=== PATIENT | female | born 1995 | race Caucasian/White ===

== ENCOUNTER 2018-06-04 17:39 | Emergency (ER) | payer MEDICAID | END 2018-06-04 20:14 | disposition home or self-care (01) | LOC: FTE 17:39 | DX: H92.02 Otalgia, left ear (principal) | CPT/HCPCS: 99283; Z7502 ==

== ENCOUNTER 2019-03-16 22:54 | Inpatient (IN) | payer MEDICAID ==
[2019-03-16 23:26] LABS: ADD MAN DIFF? NO
[2019-03-16] MEDS: SODIUM CHLORIDE 0.9% 1L BAG IV* (23:30)
[2019-03-16 23:31] LABS: BASOPHIL # 0.1 10^3/ul (0.0-0.1); BASOPHILS % 0.5 % (0.0-2.0); EOSINOPHILS # 0.2 10^3/ul (0.0-0.5); EOSINOPHILS % 1.4 % (0.0-7.0); HEMATOCRIT 39.4 % (37.0-47.0); HEMOGLOBIN 12.7 g/dl (12.0-16.0); LYMPHOCYTES # 1.5 10^3/ul (0.8-2.9); LYMPHOCYTES % 13.6 % (15.0-51.0); MEAN CORPUSCULAR HEMOGLOBIN 25.9 pg (29.0-33.0); MEAN CORPUSCULAR HGB CONC 32.2 g/dl (32.0-37.0); MEAN CORPUSCULAR VOLUME 80.2 fl (82.0-101.0); MEAN PLATELET VOLUME 9.6 fl (7.4-10.4); MONOCYTE # 0.6 10^3/ul (0.3-0.9); MONOCYTES % 5.3 % (0.0-11.0); NEUTROPHIL # 8.4 10^3/ul (1.6-7.5); NEUTROPHILS % 78.7 % (39.0-77.0); PLATELET COUNT 340 10^3/UL (140-415); RED BLOOD COUNT 4.91 10^6/ul (4.20-5.40); RED CELL DISTRIBUTION WIDTH 13.5 % (11.5-14.5)
[2019-03-16 23:31] LABS: WHITE BLOOD COUNT 10.7 10^3/ul (4.8-10.8)
[2019-03-16 23:35] LABS: ADD UMIC YES; UR ASCORBIC ACID NEGATIVE (NEGATIVE); UR BACTERIA FEW /HPF (NONE SEEN); UR BILIRUBIN (Dip) NEGATIVE (NEGATIVE); UR BLOOD (Dip) 1+ mg/dL (NEGATIVE); UR CLARITY CLEAR (CLEAR); UR COLOR YELLOW (YELLOW); UR GLUCOSE (Dip) NEGATIVE (NEGATIVE); UR KETONES (Dip) NEGATIVE (NEGATIVE); UR LEUKOCYTE ESTERASE (Dip) TRACE Leu/ul (NEGATIVE); UR NITRITE (Dip) NEGATIVE (NEGATIVE); UR RBC 0 /HPF (0-5); UR SPECIFIC GRAVITY (Dip) 1.004 (1.003-1.030); UR SQUAMOUS EPITHELIAL CELL FEW /HPF (FEW); UR TOTAL PROTEIN (Dip) 1+ mg/dl (NEGATIVE); UR UROBILINOGEN (Dip) 1+ mg/dL (NEGATIVE); UR WBC 2 /HPF (0-5)
[2019-03-16] MEDS: ACETAMINOPHEN 325 MG TAB PO (23:35)
[2019-03-16 23:50] LABS: ALANINE AMINOTRANSFERASE 28 IU/L (13-69); ALBUMIN 4.2 g/dl (3.3-4.9); ALBUMIN/GLOBULIN RATIO 1.13; ALKALINE PHOSPHATASE 92 IU/L (42-121); ANION GAP 13 (5-13); ASPARTATE AMINO TRANSFERASE 41 IU/L (15-46); BILIRUBIN,INDIRECT 0.3 mg/dl (0-1.1); BILIRUBIN,TOTAL 0.3 mg/dl (0.2-1.3); BLOOD UREA NITROGEN 5 mg/dl (7-20); CALCIUM 8.7 mg/dl (8.4-10.2); CARBON DIOXIDE 24 mmol/L (21-31); CHLORIDE 101 mmol/L (97-110); CREATININE 0.56 mg/dl (0.44-1.00); Estimated GFR > 60 mL/min (>60); GLUCOSE 126 mg/dl (70-220); POTASSIUM 3.5 mmol/L (3.5-5.1); SODIUM 138 mmol/L (135-144); TOTAL PROTEIN 7.9 g/dl (6.1-8.1)
[2019-03-16 23:51] LABS: INR 1.01; PROTIME 13.4 Sec (11.9-14.9)
[2019-03-17 00:01] LABS: TROPONIN-I < 0.012 ng/ml (0.000-0.120)
[2019-03-17] MEDS: ALBUTEROL 0.083% (NEB) 2.5 MG/3 ML AMP HHN (00:51)
[2019-03-17] MEDS: IPRATROPIUM (NEB) 0.5 MG/2.5 ML AMP HHN (00:51)
[2019-03-17] MEDS: CEFTRIAXONE 1 GM/50 ML (PMX) 50 ML IVPB (00:53)
[2019-03-17] MEDS: AZITHROMYCIN 500MG/NS (PMX) 250 ML IVPB (00:54)
[2019-03-17] MEDS ORDERED: ONDANSETRON 4 MG INJ IV (01:30)
[2019-03-17] MEDS ORDERED: BISACODYL (EC) 5 MG TAB PO (01:30)
[2019-03-17] MEDS ORDERED: NACL 0.9% 3 ML SYG IV (01:30)
[2019-03-17 01:52] LABS: D-DIMER 549.86 ng/ml (<460)
[2019-03-17 01:55] LABS: LACTIC ACID 0.9 mmol/L (0.5-2.0)
[2019-03-17] MEDS: IBUPROFEN 600 MG TAB PO (02:21)
[2019-03-17] MEDS: SOD CHLORIDE 0.9% 500 ML IV (02:22)
[2019-03-17] MEDS: IOHEXOL 300MG/ML 150 ML BTL (03:58)
[2019-03-17] MEDS: SOD CHLORIDE 0.9% 100 ML (03:58)
[2019-03-17 05:53] LABS: ADD MAN DIFF? NO
[2019-03-17 06:03] LABS: BASOPHILS % 0.3 % (0.0-2.0); EOSINOPHILS # 0.1 10^3/ul (0.0-0.5); EOSINOPHILS % 1.1 % (0.0-7.0); HEMATOCRIT 32.5 % (37.0-47.0); HEMOGLOBIN 10.5 g/dl (12.0-16.0); LYMPHOCYTES # 1.8 10^3/ul (0.8-2.9); MEAN CORPUSCULAR HEMOGLOBIN 26.4 pg (29.0-33.0); MEAN CORPUSCULAR HGB CONC 32.3 g/dl (32.0-37.0); MEAN CORPUSCULAR VOLUME 81.7 fl (82.0-101.0); MEAN PLATELET VOLUME 9.6 fl (7.4-10.4); MONOCYTE # 0.4 10^3/ul (0.3-0.9); MONOCYTES % 4.9 % (0.0-11.0); NEUTROPHIL # 5.1 10^3/ul (1.6-7.5); NEUTROPHILS % 69.3 % (39.0-77.0); PLATELET COUNT 264 10^3/UL (140-415); RED BLOOD COUNT 3.98 10^6/ul (4.20-5.40); RED CELL DISTRIBUTION WIDTH 13.5 % (11.5-14.5)
[2019-03-17 06:03] LABS: WHITE BLOOD COUNT 7.4 10^3/ul (4.8-10.8)
[2019-03-17 06:20] LABS: ALANINE AMINOTRANSFERASE 25 IU/L (13-69); ALBUMIN 3.1 g/dl (3.3-4.9); ALBUMIN/GLOBULIN RATIO 0.93; ALKALINE PHOSPHATASE 68 IU/L (42-121); ANION GAP 5 (5-13); ASPARTATE AMINO TRANSFERASE 32 IU/L (15-46); BILIRUBIN,INDIRECT 0.2 mg/dl (0-1.1); BILIRUBIN,TOTAL 0.2 mg/dl (0.2-1.3); BLOOD UREA NITROGEN 3 mg/dl (7-20); CALCIUM 7.4 mg/dl (8.4-10.2); CARBON DIOXIDE 24 mmol/L (21-31); CHLORIDE 111 mmol/L (97-110); CREATININE 0.56 mg/dl (0.44-1.00); Estimated GFR > 60 mL/min (>60); GLUCOSE 117 mg/dl (70-220); POTASSIUM 3.7 mmol/L (3.5-5.1); SODIUM 140 mmol/L (135-144); TOTAL PROTEIN 6.4 g/dl (6.1-8.1)
[2019-03-17] MEDS: ALBUTEROL/IPRATROPIUM (NEB) 3 ML AMP HHN ×2 (15:30→19:06)
[2019-03-17] MEDS: GUAIFENESIN/DM 5ML CUP PO ×2 (16:04→23:48)
[2019-03-17 16:35] LABS: AMPHETAMINE/METHAMPHETAMINE NEGATIVE (NEGATIVE); BARBITURATES NEGATIVE (NEGATIVE); BENZODIAZEPINES NEGATIVE (NEGATIVE); CANNABINOIDS NEGATIVE (NEGATIVE); COCAINE NEGATIVE (NEGATIVE); OPIATES NEGATIVE (NEGATIVE)
[2019-03-17] MEDS: ACETAMINOPHEN 325 MG TAB PO (18:36)
[2019-03-18] MEDS: CEFTRIAXONE 1 GM/50 ML (PMX) 50 ML IVPB (01:17)
[2019-03-18] MEDS: AZITHROMYCIN 500MG/NS (PMX) 250 ML IVPB (01:52)
[2019-03-18] MEDS: ALBUTEROL/IPRATROPIUM (NEB) 3 ML AMP HHN ×4 (01:59→20:17)
[2019-03-18 05:44] LABS: ADD MAN DIFF? NO
[2019-03-18 05:47] LABS: BASOPHILS % 0.4 % (0.0-2.0); EOSINOPHILS # 0.4 10^3/ul (0.0-0.5); EOSINOPHILS % 5.5 % (0.0-7.0); HEMATOCRIT 35.3 % (37.0-47.0); HEMOGLOBIN 11.3 g/dl (12.0-16.0); LYMPHOCYTES # 1.8 10^3/ul (0.8-2.9); LYMPHOCYTES % 27.4 % (15.0-51.0); MEAN CORPUSCULAR HEMOGLOBIN 26.2 pg (29.0-33.0); MEAN CORPUSCULAR VOLUME 81.7 fl (82.0-101.0); MEAN PLATELET VOLUME 9.8 fl (7.4-10.4); MONOCYTE # 0.3 10^3/ul (0.3-0.9); MONOCYTES % 5.1 % (0.0-11.0); NEUTROPHIL # 4.1 10^3/ul (1.6-7.5); PLATELET COUNT 296 10^3/UL (140-415); RED BLOOD COUNT 4.32 10^6/ul (4.20-5.40); RED CELL DISTRIBUTION WIDTH 13.7 % (11.5-14.5)
[2019-03-18 05:47] LABS: WHITE BLOOD COUNT 6.7 10^3/ul (4.8-10.8)
[2019-03-18 06:19] LABS: ALANINE AMINOTRANSFERASE 29 IU/L (13-69); ALBUMIN 3.4 g/dl (3.3-4.9); ALBUMIN/GLOBULIN RATIO 1.06; ALKALINE PHOSPHATASE 65 IU/L (42-121); ANION GAP 8 (5-13); ASPARTATE AMINO TRANSFERASE 38 IU/L (15-46); BILIRUBIN,INDIRECT 0.2 mg/dl (0-1.1); BILIRUBIN,TOTAL 0.2 mg/dl (0.2-1.3); BLOOD UREA NITROGEN 3 mg/dl (7-20); CALCIUM 8.3 mg/dl (8.4-10.2); CARBON DIOXIDE 25 mmol/L (21-31); CHLORIDE 107 mmol/L (97-110); CHOL/HDL RATIO 4.7 RATIO; CHOLESTEROL 123 mg/dl (100-200); CREATININE 0.55 mg/dl (0.44-1.00); Estimated GFR > 60 mL/min (>60); GLUCOSE 98 mg/dl (70-220); HDL CHOLESTEROL 26 mg/dl (33-83); LDL CHOLESTEROL,CALCULATED 67 mg/dl; MAGNESIUM 2.2 mg/dl (1.7-2.5); POTASSIUM 3.7 mmol/L (3.5-5.1); SODIUM 140 mmol/L (135-144); TOTAL PROTEIN 6.6 g/dl (6.1-8.1); TRIGLYCERIDES 152 mg/dl (0-149)
[2019-03-18 06:41] LABS: THYROID STIMULATING HORMONE 0.393 MIU/L (0.465-4.680)
[2019-03-18 09:18] LABS: HEMOGLOBIN A1C 5.4 % (0-5.9)
[2019-03-18] MEDS: GUAIFENESIN/DM 5ML CUP PO (13:07)
[2019-03-18 15:07] LABS: B-TYPE NATRIURETIC PEPTIDE 340 PG/ML (0-125)
[2019-03-18 15:15] LABS: FREE T4 (FREE THYROXINE) 1.45 ng/dl (0.79-2.35)
[2019-03-18] MEDS: ACETAMINOPHEN 325 MG TAB PO (15:37)
[2019-03-19] MEDS: GUAIFENESIN/DM 5ML CUP PO ×2 (00:23→12:23)
[2019-03-19] MEDS: CEFTRIAXONE 1 GM/50 ML (PMX) 50 ML IVPB (00:24)
[2019-03-19] MEDS: ACETAMINOPHEN 325 MG TAB PO (01:05)
[2019-03-19] MEDS: AZITHROMYCIN 500MG/NS (PMX) 250 ML IVPB (01:33)
[2019-03-19] MEDS: ALBUTEROL/IPRATROPIUM (NEB) 3 ML AMP HHN ×3 (01:37→14:00)
[2019-03-19 05:50] LABS: ADD MAN DIFF? NO
[2019-03-19 06:03] LABS: BASOPHILS % 0.4 % (0.0-2.0); EOSINOPHILS # 0.5 10^3/ul (0.0-0.5); EOSINOPHILS % 9.1 % (0.0-7.0); HEMATOCRIT 34.3 % (37.0-47.0); LYMPHOCYTES # 2.1 10^3/ul (0.8-2.9); LYMPHOCYTES % 40.6 % (15.0-51.0); MEAN CORPUSCULAR HEMOGLOBIN 26.2 pg (29.0-33.0); MEAN CORPUSCULAR HGB CONC 32.1 g/dl (32.0-37.0); MEAN CORPUSCULAR VOLUME 81.7 fl (82.0-101.0); MEAN PLATELET VOLUME 9.7 fl (7.4-10.4); MONOCYTE # 0.3 10^3/ul (0.3-0.9); MONOCYTES % 6.1 % (0.0-11.0); NEUTROPHIL # 2.2 10^3/ul (1.6-7.5); NEUTROPHILS % 43.2 % (39.0-77.0); PLATELET COUNT 321 10^3/UL (140-415); RED CELL DISTRIBUTION WIDTH 13.6 % (11.5-14.5)
[2019-03-19 06:03] LABS: WHITE BLOOD COUNT 5.1 10^3/ul (4.8-10.8)
[2019-03-19 06:17] LABS: ALANINE AMINOTRANSFERASE 32 IU/L (13-69); ALBUMIN 3.4 g/dl (3.3-4.9); ALBUMIN/GLOBULIN RATIO 0.94; ALKALINE PHOSPHATASE 73 IU/L (42-121); ANION GAP 11 (5-13); ASPARTATE AMINO TRANSFERASE 35 IU/L (15-46); BILIRUBIN,INDIRECT 0.2 mg/dl (0-1.1); BILIRUBIN,TOTAL 0.2 mg/dl (0.2-1.3); BLOOD UREA NITROGEN 6 mg/dl (7-20); CALCIUM 8.3 mg/dl (8.4-10.2); CARBON DIOXIDE 23 mmol/L (21-31); CHLORIDE 108 mmol/L (97-110); CREATININE 0.44 mg/dl (0.44-1.00); Estimated GFR > 60 mL/min (>60); GLUCOSE 95 mg/dl (70-220); POTASSIUM 3.6 mmol/L (3.5-5.1); SODIUM 142 mmol/L (135-144)
[2019-03-19 06:22] LABS: MAGNESIUM 2.2 mg/dl (1.7-2.5)
[2019-03-19 06:22] LABS: PHOSPHORUS 4.9 mg/dl (2.5-4.9)
[2019-03-19] MEDS: DOCUSATE SODIUM 100 MG CAP PO (12:23)
[2019-03-19 15:16] LABS: MYCOPLASMA PNEUMONIAE AB (IGG) < or = 0.90
== END 2019-03-19 19:20 | disposition home or self-care (01) | DRG 871 ==
LOC: E/R 22:54 → 2NE 03-17 00:56
DX: A41.9 Sepsis, unspecified organism (principal); J18.9 Pneumonia, unspecified organism; J96.01 Acute respiratory failure with hypoxia; N39.0 Urinary tract infection, site not specified
CPT/HCPCS: 36415; 71045; 71275; 80053; 80061; 80307; 81001; 83036; 83605; 83735; 83880; 84100; 84439; 84443; 84484; 84703; 85025; 85378; 85610; 85730; 86738; 87040-91; 87086; 87400; 87449; 93005; 94640; 94664; 96374; 96375; 99285-25